=== PATIENT | male | born 1940 | race Caucasian/White ===

== ENCOUNTER 2016-12-08 05:27 | Inpatient (IN) | payer OTHER ==
[2016-11-24 13:38] LABS: URINE BILIRUBIN NEGATIVE (Negative); URINE BLOOD NEGATIVE (Negative); URINE COLOR YELLOW; URINE GLUCOSE-RANDOM* NEGATIVE (Negative); URINE KETONES NEGATIVE (Negative); URINE LEUKOCYTES-REFLEX NEGATIVE (Negative); URINE PROTEIN (DIPSTICK) NEGATIVE (Negative); URINE SPECIFIC GRAVITY <= 1.005 (1.003-1.035); URINE UROBILINOGEN 0.2 E.U./dl (0.2-1.0)
[2016-11-24 13:42] LABS: HEMATOCRIT 37.2 % (42.0-52.0); HEMOGLOBIN 12.5 gm/dL (14.0-18.0); MCH 31.9 pg (26.0-34.0); MCHC 33.6 g/dL (28.0-37.0); RBC 3.92 mil/uL (4.50-6.00); WBC 6.5 thou/uL (4.0-11.0)
[2016-11-24 13:52] LABS: PROTIME 10.6 Seconds (9.3-11.4)
[2016-11-24 13:56] LABS: ALBUMIN 3.5 g/dL (3.4-5.0); CALCIUM 8.7 mg/dL (8.5-10.1); CREATININE 0.9 mg/dL (0.6-1.3); POTASSIUM 4.7 mmol/L (3.5-5.1)
[~2016-12-08] VITALS: Ht 193 cm; Wt 76.3 kg
[2016-12-08] VITALS (9 sets, daily range): BP systolic 115–148; BP diastolic 56–76
--- NOTE | ~2016-12-08 | H ---
[facility] [place] [address] HISTORY AND PHYSICAL Name: AVERYCONCETTA R Room #: 541-P DIS IN M.R.#: [id number] Admission: 12/08/16 Attend Phys: Yoandy Glez MD Discharge: 12/12/16 Date of : 36 Report #: [id number] THIS REPORT FOR: //name// For History and Physical, please see office documentation/handwritten note in the patient's medical record. By: 1027 Yoandy Glez MD /jr
--- NOTE | ~2016-12-08 | O ---
[facility] [place] [address] [address] [place] [address] OPERATIVE REPORT Name: CONCETTA VARELA Room #: 150-2 ADM IN M.R.#: [id number] Admission: 12/08/16 Attend Phys: Yoandy Glez MD Discharge: Date of : 36 Report #: [id number] THIS REPORT FOR: //name// CC: Norman Glez PREOPERATIVE DIAGNOSIS: Right knee degenerative joint disease, severe. POSTOPERATIVE DIAGNOSIS: Right knee degenerative joint disease, severe. PROCEDURE: Right total knee arthroplasty. SURGEON: Dr. Yoandy Glez. BEAVER TRAPPER: Linwood Forman, nurse practitioner. INDICATIONS FOR BEAVER TRAPPER: During the course of operation, extensive manipulation, retraction and limb positioning was required. This was afforded to me by my clinic assistant. ANESTHESIA: General. INDICATIONS: See hospital revisions 12/08/2016. IMPLANTS UTILIZED: Used a DePuy PFC knee system. We used a cruciate retaining femoral component size 5 press fit. We used a size 5 tibial tray with a 12.5 mm insert and a 41 mm oval dome patella. DESCRIPTION OF PROCEDURE: After adequate general anesthesia had been obtained, the patient's right lower extremity was prepped and draped in the usual meticulous sterile fashion. Limb was exsanguinated with gravity, tourniquet inflated to 300 torr. Anterior midline incision was made, subQ divided sharply. Hemostasis obtained with electrocautery. Medial parapatellar incision was made. Infrapatellar fat pad excised. Medial release performed. Drill was used to drill distal femur. This hole was enlarged, irrigated, suctioned, and the intramedullary guide placed the full length of the femur. Distal femoral cutting guide pinned to appropriate height, distal femoral cut was made. Measuring device determined the size 5 as appropriate size for this patient. We impacted the cutting guide into position and the anterior, posterior and chamfer cuts were made. Rongeur was used to remove additional osteophytes. At this time, the ACL was transected, tibia translated anteriorly, menisci were excised. Drill was used to drill central portion of the tibia. This was enlarged, irrigated and suctioned and the intramedullary guide placed the full length of tibia. Proximal tibial cutting guide placed at appropriate height. Proximal tibia cut was made. A 5 tray gave us the best coverage on the tibia as well. [address] [address] OPERATIVE REPORT Name: CONCETTA VARELA Ivelisse Room #: 150-2 ADM IN M.R.#: [id number] Admission: 12/08/16 Attend Phys: Yoandy Glez MD Discharge: Date of : 36 Report #: [id number] We put the trial components in position with a 12.5 spacer, we had the best flexion and extension gap. Patella tracked normally. Patella was then measured, cutting guide clamped into place, patellar cut was made, 41 template gave us the best coverage. Pedicles were drilled, trial component put in position, it tracked normally. At this time, the tibial keel cuts were made. The knee was irrigated with both pulse lavage and antibiotic irrigation. Bone plugs were placed proximal tibia and distal femur. We vacuum mixed the cement and when it reached the appropriate consistency, the knee was thoroughly dried, the tibial tray was cemented in place. Excess cement was removed. The polyethylene was impacted in place and the femur impacted in place and the knee was taken out to 30 degrees of flexion, uniform compression placed across components. Patellar button was then cemented into place and again excess cement was removed. At this time, irrigation was placed in the wound and allowed to rest in the wound until the cement fully cured. When it had done so, the knee was irrigated, dried thoroughly, inspected. Drains were placed superolaterally both deep and superficial. Retinacular layer closed with combination of interrupted [id number]-im-[id number] #1 Vicryl as well as running #1 Tevdek. SubQ closed with 2-0 Monocryl, skin closed with lenaa. Sterile compressive dressing applied. Tourniquet deflated. By: 0849 0948 Yoandy Glez MD /suleiman
[~2016-12-08 05:27] MED LIST: ALPHA LIPOIC A100 MG PO; ASCORBIC ACID250 MG PO; ATORVASTATIN CA40 MG PO; CASODEX 50 MG T50 M1 PO; CO Q-10100 MG PO; EXFORGE 5-1601 EACH PO; FLOMAX0.4 MG PO; GLUCOSAMINE HC500 M1 PO; INDOMETHACIN 2525 MG PO; KEFLEX500 MG PO; KRILL OIL500 MG PO; NABUMETONE 500500 M1 PO; NORCO 5-325 TA1 EACH PO; OMEGA 3 FISH O1 EACH PO; VITAMIN D2000 UNIT PO; ZINC30 M1 PO
[2016-12-09] VITALS: BP 118/64
[2016-12-09 04:00] VITALS: BP 117/64
[2016-12-09 06:11] LABS: HEMATOCRIT 32.6 % (42.0-52.0); HEMOGLOBIN 11.1 gm/dL (14.0-18.0); MCH 32.5 pg (26.0-34.0); MCV 95.8 fL (80.0-100.0); RBC 3.4 mil/uL (4.50-6.00); RDW 13.7 % (10.5-14.5); WBC 9.5 thou/uL (4.0-11.0)
[2016-12-09 07:25] VITALS: BP 118/63
[2016-12-09 16:20] VITALS: BP 139/36
[2016-12-09 20:00] VITALS: BP 126/56
[2016-12-10 04:00] VITALS: BP 134/60
[2016-12-10 04:13] LABS: HEMATOCRIT 30.3 % (42.0-52.0); HEMOGLOBIN 10.5 gm/dL (14.0-18.0); MCH 32.9 pg (26.0-34.0); MCHC 34.5 g/dL (28.0-37.0); MCV 95.4 fL (80.0-100.0); RBC 3.18 mil/uL (4.50-6.00); RDW 14.2 % (10.5-14.5); WBC 8.7 thou/uL (4.0-11.0)
[2016-12-10] MEDS ORDERED: XARELTO10 MG PO (06:41)
[2016-12-10] MEDS ORDERED: PERCOCET 10-321 EACH PO (06:41)
[2016-12-10 07:15] VITALS: BP 132/64
[2016-12-10 15:10] VITALS: BP 148/49
[2016-12-10 16:02] VITALS: BP 132/64
[2016-12-10 21:29] VITALS: BP 143/62
[2016-12-11 05:02] VITALS: BP 115/60
[2016-12-11 06:49] LABS: HEMATOCRIT 27.9 % (42.0-52.0); HEMOGLOBIN 9.5 gm/dL (14.0-18.0); MCH 32.5 pg (26.0-34.0); MCHC 34.2 g/dL (28.0-37.0); RBC 2.93 mil/uL (4.50-6.00); RDW 13.8 % (10.5-14.5); WBC 8.3 thou/uL (4.0-11.0)
[2016-12-11 07:51] VITALS: BP 125/65
[2016-12-11 09:52] VITALS: BP 126/64
[2016-12-11 10:17] VITALS: BP 132/64
[2016-12-11 15:20] VITALS: BP 114/72
[2016-12-11 20:40] VITALS: BP 139/65
[2016-12-12 04:10] VITALS: BP 140/63
[2016-12-12 07:36] VITALS: BP 145/72
[2016-12-12 08:44] VITALS: BP 132/64
== END 2016-12-12 13:45 | disposition home health service (06) | DRG 470 ==
LOC: TBA 05:27 → 5S 05:27 → PRE 07:26 → 5S 09:58 → PRE 09:58 → 5S 12-12 13:45
PROVIDERS: Orthopaedic Surgery
PROC: 0SRC0J9 Replacement of Right Knee Joint with Synthetic Substitute, Cemented, Open Approach (ICD-10-PCS; principal; 2016-12-08)
DX: M17.11 Unilateral primary osteoarthritis, right knee (principal); D62 Acute posthemorrhagic anemia; I10 Essential (primary) hypertension; K21.9 Gastro-esophageal reflux disease without esophagitis; Z85.46 Personal history of malignant neoplasm of prostate; Z92.3 Personal history of irradiation; Z88.1 Allergy status to other antibiotic agents; Z88.8 Allergy status to other drugs, medicaments and biological substances
CPT/HCPCS: 10785; 50010; 50101; 50415; 50954; 51130; 51225; 51320; 51412; 51771; 52001; 52282; 53000; 53078; 53364; 56525; 56527; 62110; 62900; 70005

== ENCOUNTER → 2021-07-16 | Outpatient (CLI) | payer OTHER, BC ==
[~2021-07-16] MED LIST changes: +NORVASC5 MG PO; +PERCOCET 10-321 EACH PO; +PROTONIX40 M2 PO; +ROSUVASTATIN CA40 MG PO; +SPIRONOLACTONE25 MG PO; +XARELTO10 MG PO
== END ==
LOC: SJCVC 15:34
PROVIDERS: ATTEND Internal Medicine Cardiovascular Disease
DX: R94.31 Abnormal electrocardiogram [ECG] [EKG] (principal); I45.2 Bifascicular block; I25.10 Atherosclerotic heart disease of native coronary artery without angina pectoris; I10 Essential (primary) hypertension; E78.00 Pure hypercholesterolemia, unspecified; R06.00 Dyspnea, unspecified; E78.5 Hyperlipidemia, unspecified; M10.9 Gout, unspecified; K21.9 Gastro-esophageal reflux disease without esophagitis; R05.3 Chronic cough; K63.5 Polyp of colon; L93.0 Discoid lupus erythematosus; K57.90 Diverticulosis of intestine, part unspecified, without perforation or abscess without bleeding; K44.9 Diaphragmatic hernia without obstruction or gangrene; D70.9 Neutropenia, unspecified; M17.10 Unilateral primary osteoarthritis, unspecified knee; M54.17 Radiculopathy, lumbosacral region; I47.1 Supraventricular tachycardia; Z85.46 Personal history of malignant neoplasm of prostate; Z87.891 Personal history of nicotine dependence; Z72.89 Other problems related to lifestyle; Z79.899 Other long term (current) drug therapy; Z88.1 Allergy status to other antibiotic agents; Z88.8 Allergy status to other drugs, medicaments and biological substances

== ENCOUNTER → 2021-08-07 | Outpatient (CLI) | payer OTHER ==
[~2021-08-07] MED LIST changes: -NORVASC5 MG PO; -PROTONIX40 M2 PO; -ROSUVASTATIN CA40 MG PO; -SPIRONOLACTONE25 MG PO
== END ==
LOC: SJCVCIMAG 07:29
PROVIDERS: ATTEND Internal Medicine Cardiovascular Disease
DX: R00.1 Bradycardia, unspecified (principal); I45.2 Bifascicular block; R94.31 Abnormal electrocardiogram [ECG] [EKG]; I25.10 Atherosclerotic heart disease of native coronary artery without angina pectoris; R06.00 Dyspnea, unspecified; I10 Essential (primary) hypertension; Z88.8 Allergy status to other drugs, medicaments and biological substances; Z79.899 Other long term (current) drug therapy; K21.9 Gastro-esophageal reflux disease without esophagitis; K44.9 Diaphragmatic hernia without obstruction or gangrene; E78.00 Pure hypercholesterolemia, unspecified; Z87.891 Personal history of nicotine dependence; Z72.89 Other problems related to lifestyle

== ENCOUNTER → 2021-08-15 | Outpatient (CLI) | payer OTHER | LOC: CAT 13:27 | PROVIDERS: ATTEND Internal Medicine | DX: Z13.6 Encounter for screening for cardiovascular disorders (principal) ==

== ENCOUNTER → 2021-09-05 | Outpatient (CLI) | payer OTHER ==
[~2021-09-05] VITALS: Ht 190.5 cm; Wt 80.7 kg
[~2021-09-05] MED LIST changes: +NORVASC5 MG PO; +PROTONIX40 M2 PO; +ROSUVASTATIN CA40 MG PO; +SPIRONOLACTONE25 MG PO
[2021-09-05 08:19] VITALS: BP 121/68
[2021-09-05 08:40] LABS: HEMATOCRIT 40.9 % (42.0-52.0); HEMOGLOBIN 13.8 gm/dL (14.0-18.0); MCH 32.8 pg (26.0-34.0); MCHC 33.7 g/dL (28.0-37.0); MCV 97.3 fL (80.0-100.0); RBC 4.21 mil/uL (4.50-6.00); RDW 13.5 % (10.5-14.5); WBC 4.5 thou/uL (4.0-11.0)
[2021-09-05 08:49] LABS: POTASSIUM 4.5 mmol/L (3.5-5.1)
--- NOTE | 2021-09-05 09:30 | EKG ---
[address] [address] ELECTROCARDIOGRAM REPORT Name: CONCETTA VARELA Ivelisse [id number] Admission: 09/05/21 Attend Phys: Kam Pearson Discharge: Date of : 36 Report #: [id number] [facility] Test Date: 2021-09-05 Test Time: 08:36:18 Pat Name: CONCETTA VARELA Department: Room: Gender: M Ampoule Filler: [facility] : 1940 Requested By: Kam Pearson Order Number: [id number] MD: Andreas Grant Measurements Intervals [place] Rate: 60 P: 50 SD: 197 QRS: -56 QRSD: 158 T: 23 QT: 449 QTc: 449 Interpretive Statements Sinus rhythm RBBB and LAFB Compared to ECG 12/18/2004 07:39:53 Left anterior fascicular block now present Right bundle-branch block now present Sinus bradycardia no longer present Intraventricular conduction delay no longer present Electronically Signed On 09-05-2021 9:29:54 FULFILLMENT MAIL CLERK by Andreas Grant [email or web address] <ELECTRONICALLY SIGNED> By: Andreas Grant MD, [facility] 09/05/21 0929 0836 Andreas Grant MD, [facility] /EPI
--- NOTE | 2021-09-29 00:06 | CATHLAB ---
[facility] [place] [address] INVASIVE PROCEDURE REPORT Name: CONCETTA VARELA Room #: REG MARLON ChandlerAntonina#: [id number] Admission: 09/05/21 Attend Phys: Kam Pearson Discharge: Date of : 36 Report #: [id number] THIS REPORT FOR: cc: Norman Avalos MD, John L. MD Lammoglia, Francisco J. MD ~ APPROVED REPORT Study performed: 09/05/2021 10:02:11 Patient Details Patient Status: Out-Patient Room #: The patient is a 81 year-old male Event Personnel Kam Pearson Chief Warden, Diana Mackey RTR, Juan Gonzalez Amy RTR Monitor, Rhona Gordon RN district commercial superintendent Performed Art Access - R femoral artery* Left Heart Cath w/or w/o Coronaries [id number] [facility] [id number] Mod Sed Same Phys/QHP Ea [id number] 65686 Initial Mod Sed Same Phys/QHP 5y 204659 Hemostasis w/ Mynx, supervision of conscious sedation Indication Positive stress test, Chest pain Procedure Narrative The Right Groin^ was infiltrated with 1% Lidocaine subcutaneous anesthesia. A PINNACLE 4FR Sheath #[id number] sheath was inserted into the RFA 4 FR^. Coronary angiography was performed using coronary diagnostic catheters. The right coronary system was accessed and visualized with a JR4 catheter. The left coronary system was accessed and visualized with a JL4 catheter. The left ventricle was accessed and visualized with a ANGLED PIGTAIL catheter. Left ventricular/Aortic Valve gradient assessed via catheter pullback. Closure device was deployed with a 6 Fr MYNXGRIP 6/7F #[id number]. The patient tolerated the procedure well and there were no complications associated with the procedure. There was no hematoma. Intraoperative Conscious Sedation Sedation start time: 10:53 Case end Time: 11:30 Versed 3 [facility] [place] [address] INVASIVE PROCEDURE REPORT Name: CONCETTA VARELA Room #: REG [facility] [id number] Admission: 09/05/21 Attend Phys: Kam Millan Discharge: Date of : 36 Report #: [id number] Fluoro Time: 6.00 minutes Dose: DAP 4629.70 cGycm2 611 mGy Contrast Type and Amount: Omnipaque 55 ml Coronary Angiography The patient's coronary anatomy is right dominant. Diagnostic Cath Left Main Large caliber vessel of normal origin that bifurcates into LAD and LCx coronary arteries. No significant high grade lesions LAD Moderate caliber type III vessel coursing in the anterior intraventricular sulcus giving rise to small caliber diagonal and a smaller caliber second diagonal branch. the LAD rapidly tapers toward the apex then terminates as a bifurcating vessel. Diagonal 1 small caliber vessel coursing in the anterolateral aspect of the LV free of significant obstructive lesions Diagonal 2 diminuitive caliber disease free vessel Circumflex Moderate caliber nondominant vessel which rapidly gives rise to marginal branch and terminates prior to reaching crux of heart. free of significant obstructive lesions OM1 small caliber short vessel without high grade lesions Right Coronary Large caliber vessel of normal origin with a large proximal shepards crook deformity. courses to crux of the heart free of significsnt obstructive lesions R PDA small caliber vessel without significant obstructive lesion Left Ventriculography Left Ventriculography was not performed. Hemodynamics The aortic pressure is 128/72 mmHg with a mean of 90 mmHg. The left ventricular pressure is 128/3 mmHg with a mean of mmHg. The left ventricular end diastolic pressure is 15 mmHg. Conclusion 1. Normal Coronary Arteries 2. Rapidly tapering mid/distal LAD 3. Normal hemodynamics [facility] [address] [place] [address] INVASIVE PROCEDURE REPORT Name: AVERYCONCETTA R Room #: [facility]#: [id number] Admission: 09/05/21 Attend Phys: Kam Millan Discharge: Date of : 36 Report #: [id number] Recommendations Cardiac Risk Reduction Program <ELECTRONICALLY SIGNED> By: Kam Pearson MD 09/29/21 0006 0006 0006 Kam Pearson MD /INF
== END | disposition home or self-care (01) ==
LOC: CATH 07:40
PROVIDERS: ATTEND Internal Medicine
DX: R94.39 Abnormal result of other cardiovascular function study (principal); I25.10 Atherosclerotic heart disease of native coronary artery without angina pectoris; R06.00 Dyspnea, unspecified; I10 Essential (primary) hypertension; E78.5 Hyperlipidemia, unspecified; K21.9 Gastro-esophageal reflux disease without esophagitis; Z98.890 Other specified postprocedural states; Z79.899 Other long term (current) drug therapy; Z85.46 Personal history of malignant neoplasm of prostate; Z87.891 Personal history of nicotine dependence; Z88.8 Allergy status to other drugs, medicaments and biological substances

== ENCOUNTER → 2021-09-10 | Outpatient (CLI) | payer OTHER | LOC: SJCVCIMAG 10:51 | PROVIDERS: ATTEND Internal Medicine | DX: I72.4 Aneurysm of artery of lower extremity (principal); R22.41 Localized swelling, mass and lump, right lower limb; K21.9 Gastro-esophageal reflux disease without esophagitis; I25.10 Atherosclerotic heart disease of native coronary artery without angina pectoris; I10 Essential (primary) hypertension; E78.00 Pure hypercholesterolemia, unspecified; Z79.899 Other long term (current) drug therapy; Z72.89 Other problems related to lifestyle; Z87.891 Personal history of nicotine dependence; Z88.1 Allergy status to other antibiotic agents; Z88.8 Allergy status to other drugs, medicaments and biological substances ==